=== PATIENT | female | born 1960 | race Caucasian/White ===

== ENCOUNTER 2019-01-04 17:54 | Emergency (ER) | payer SELFPAY | END 2019-01-04 18:18 | disposition left against medical advice (07) | LOC: JD.ED 17:54 | DX: Z53.21 Procedure and treatment not carried out due to patient leaving prior to being seen by health care provider (principal) ==

== ENCOUNTER 2025-08-01 14:54 | Emergency (ER) | payer MEDICARE, OTHER ==
[2025-08-01 15:50] LABS: APPEARANCE,URINE CLEAR (Clear); GLUCOSE,URINE NEGATIVE (Negative); OCCULT BLOOD,URINE NEGATIVE (Negative)
[2025-08-01 15:58] LABS: EPITHELIAL CELLS,URINE 0-5 /hpf (0-5)
[2025-08-01 16:45] VITALS: BP 139/79; PULSE 77
== END 2025-08-01 16:40 | disposition home or self-care (01) ==
LOC: JD.ED 14:54
DX: N30.00 Acute cystitis without hematuria (principal); M79.605 Pain in left leg
CPT/HCPCS: 81001; 93971-26-LT; 93971-LT; 99284

== ENCOUNTER 2025-08-06 13:42 | Emergency (ER) | payer MEDICARE, OTHER ==
[2025-08-06 14:26] LABS: APPEARANCE,URINE CLEAR (Clear); GLUCOSE,URINE NEGATIVE (Negative); OCCULT BLOOD,URINE TRACE-LYSED (Negative)
[2025-08-06 14:39] LABS: EPITHELIAL CELLS,URINE 0-5 /hpf (0-5)
[2025-08-06 16:18] VITALS: BP 112/79; PULSE 70
== END 2025-08-06 15:30 | disposition home or self-care (01) ==
LOC: JD.ED 13:42
DX: N30.00 Acute cystitis without hematuria (principal); Z88.8 Allergy status to other drugs, medicaments and biological substances; Z79.899 Other long term (current) drug therapy
CPT/HCPCS: 81001; 99283; 99284